=== PATIENT | female | born 1990 ===

== ENCOUNTER 2020-02-19 18:07 | Emergency (ER) | payer SELFPAY ==
[~2020-02-19] VITALS: Ht 162 cm; Wt 71.8 kg
[2020-02-19 18:18] VITALS: TEMP 98.8
[2020-02-19 19:19] LABS: BASO % 0.4 % (0.0-2.0); EOS # 0.1 (0.0-0.7); GRAN # 4.4 (1.4-6.5); HEMATOCRIT 41.9 % (37.0-47.0); HEMOGLOBIN 14.3 g/dl (12.5-16.0); LYMPH # 2.7 (1.2-3.4); LYMPH % 33.8 % (20.0-51.0); MEAN CELL VOLUME 91 fl (80.0-100.0); MEAN CORPUSCULAR HEMOGLOBIN 31 pg (27.0-31.0); MEAN CORPUSCULAR HGB CONC 34 g/dl (33.0-37.0); MEAN PLATELET VOLUME 9.8 fl (7.4-10.4); MONO # 0.7 (0.1-0.6); MONO % 8.4 % (1.7-9.3); PLATELET COUNT 414 K/mm3 (130-400); RED BLOOD COUNT 4.59 M/mm3 (4.10-5.30); REDCELL DISTRIBUTION WIDTH-CV 12.3 % (11.5-14.5)
[2020-02-19 19:34] LABS: ALANINE AMINOTRANSFERASE 25 U/L (4-34); ALBUMIN 4.5 gm/dL (3.5-5.0); ALKALINE PHOSPHATASE 87 U/L (50-136); ANION GAP 11 mmol/L (7-16); AST,SGOT 27 U/L (15-37); BILIRUBIN,TOTAL 0.4 mg/dL (0.0-1.0); BLOOD UREA NITROGEN 12 mg/dL (7-17); CALCIUM 9.4 mg/dL (8.4-10.2); CARBON DIOXIDE 27 mmol/L (22-30); CHLORIDE 104 mmol/L (98-107); CREATININE, serum 0.57 (0.52-1.25); GLUCOSE 104 mg/dL (74-106); POTASSIUM 3.6 mmol/L (3.4-5.0); SODIUM 141 mmol/L (137-145); TOTAL PROTEIN 7.9 gm/dL (6.4-8.2)
[2020-02-19 19:47] LABS: TROPONIN-I < 0.012 ng/mL (0.000-0.035)
[2020-02-19 20:25] VITALS: BP 118/81; PULSE 94
[2020-02-19] MEDS ORDERED: PROTONIX20 MG PO (20:31)
== END 2020-02-19 20:43 | disposition home or self-care (01) ==
LOC: COL.ER 18:07
PROVIDERS: Nurse Practitioner Primary Care
DX: R07.89 Other chest pain (principal); Z86.19 Personal history of other infectious and parasitic diseases